=== PATIENT | female | born 1965 | race Caucasian/White ===

== ENCOUNTER 2020-08-15 10:41 | Emergency (ER) | payer MEDICARE, OTHER ==
[~2020-08-15 10:41] MED LIST: ASPIRIN81 MG PO; BENTYL 10MG CAP10 MG PO; CEFUROXIME500 MG PO; Fioricet PO; IBUPROFEN800 MG PO; OMNICEF 300 MG300 MG PO; PERCOCET 5/325 T1 EA PO; PHENERGAN 12.12.5 M1 PO; PHENERGAN 12.12.5 MG PR; PROTONIX40 MG PO; Voltaren Gel 1 % TOP
[2020-08-15 13:38] LABS: HEMOGLOBIN 11.3 gm/dl (12.3-15.3); RED BLOOD COUNT 4.65 M/UL (4.00-5.10)
[2020-08-15 14:20] LABS: BUN/CREATININE RATIO 30 (0-10)
[2020-08-15] MEDS ORDERED: PHENERGAN 25 MG25 M1 PO (16:47)
== END 2020-08-15 16:58 | disposition home or self-care (01) ==
LOC: ER1 10:41
PROVIDERS: Physician Assistant Medical
DX: R10.84 Generalized abdominal pain (principal); R11.2 Nausea with vomiting, unspecified; K21.9 Gastro-esophageal reflux disease without esophagitis; F17.210 Nicotine dependence, cigarettes, uncomplicated; Z90.49 Acquired absence of other specified parts of digestive tract; Z90.710 Acquired absence of both cervix and uterus; Z88.8 Allergy status to other drugs, medicaments and biological substances; Z88.6 Allergy status to analgesic agent
CPT/HCPCS: 71045; 80053; 81001; 82150; 82550; 82553; 83605; 83690; 83874; 84484; 85025; 87040; 93005; 96374; 96375; 99284; J2270; J2550; Q9967

== ENCOUNTER 2020-10-05 21:16 | Emergency (ER) | payer MEDICARE, OTHER ==
[~2020-10-05 21:16] MED LIST changes: +PHENERGAN 25 MG25 M1 PO
[2020-10-05 22:35] LABS: HEMOGLOBIN 10.1 gm/dl (12.3-15.3); RED BLOOD COUNT 4.1 M/UL (4.00-5.10); WHITE BLOOD COUNT 3.4 K/UL (4.5-11.0)
[2020-10-05 22:58] LABS: BUN/CREATININE RATIO 30 (0-10)
== END 2020-10-06 | disposition left against medical advice (07) ==
LOC: ER1 21:16
PROVIDERS: Physician Assistant
DX: Z53.21 Procedure and treatment not carried out due to patient leaving prior to being seen by health care provider (principal)
CPT/HCPCS: 71045; 73030; 80053; 82550; 82553; 83690; 83874; 83880; 84484; 85025; 85652; 93005